=== PATIENT | male | born 1945 | race Caucasian/White ===

== ENCOUNTER 2024-05-22 17:45 | Inpatient (IN) ==
[2024-05-22 18:10] LABS: ABS Eosinophils 0.1 10^3/uL (0.0-0.5); ABS Lymphocytes 1.3 10^3/uL (1.0-4.8); ABS Monocytes 0.7 10^3/uL (0.0-1.1); Eosinophil % 0.7 %; Hematocrit 42.3 % (38-53); Hemoglobin 14.1 g/dL (13.2-16.3); Lymphocyte % 12.1 %; Mean Corpuscular Hemoglobin 30.7 pg (27-33); Mean Corpuscular Hgb Conc 33.4 g/dL (31-36); Mean Corpuscular Volume 91.9 fL (80-97); Platelet Count 189 10^3/uL (150-450); Red Cell Distribution Width 15.1 % (12-17); White Blood Count 11.2 10^3/uL (3.6-10.2)
[2024-05-22 18:44] LABS: Albumin 3.5 g/dL (3.5-5.7); Albumin/Globulin Ratio 1.9 (1-3); Calcium 8.9 mg/dL (8.6-10.3); Creatinine, Serum 1.78 mg/dL (0.67-1.17); Globulin 1.8 g/dL (2-4); Magnesium 2.1 mg/dL (1.9-2.7); Potassium 5.5 mmol/L (3.5-5.0); Total Protein 5.3 g/dL (6.4-8.9); eGFR CKD-EPI 38.8 (>60)
[2024-05-22 19:11] LABS: INR 1.13 (0.85-1.14)
[2024-05-22 19:11] LABS: Venous Bicarbonate HCO3 19.9 mmol/L (24-28)
[2024-05-22 19:34] LABS: High Sensitivity Troponin 1 Hr 182 pg/mL (<20)
[2024-05-22] MEDS: Iodixanol 320 (CONTRAST) 100 ML SDV IV ONE (19:59)
[2024-05-22 21:07] LABS: High Sensitivity Troponin 3 Hr 354 pg/mL (<20)
[2024-05-22] MEDS ORDERED: Morphine 2 MG/ML SYRINGE IV PRN (23:17)
[2024-05-22] MEDS ORDERED: Dextrose 50% Syringe 50 ml 25 GM/50 ML SYRINGE IV PUSH PRN (23:51)
[2024-05-23] MEDS: Insulin GLARGINE 100 un/ml 10 ml VIAL SUBCUT ONE (02:24)
[2024-05-23] MEDS: Heparin 5000 UNITS/ML 1 mL VIAL SUBCUT SCH (02:25)
[2024-05-23] MEDS: SODIUM ZIRCONIUM CYCLOSILICATE 5 GM PACKET PO SCH (02:28)
[2024-05-23] MEDS: Lactated Ringers 1000 ml BAG 1,000 ML IV ONE (02:42)
[2024-05-23 04:18] LABS: ABS Basophils 0.1 10^3/uL (0.0-0.1); ABS Lymphocytes 0.4 10^3/uL (1.0-4.8); ABS Monocytes 0.6 10^3/uL (0.0-1.1); ABS Neutrophils 11.9 10^3/uL (1.5-7.6); Hemoglobin 13.9 g/dL (13.2-16.3); Lymphocyte % 3.2 %; Mean Corpuscular Hemoglobin 30.4 pg (27-33); Mean Corpuscular Hgb Conc 33.1 g/dL (31-36); Mean Corpuscular Volume 91.9 fL (80-97); Mean Platelet Volume 9.2 fL (7.5-11.2); Platelet Count 182 10^3/uL (150-450); Red Blood Count 4.57 10^6/uL (4.06-5.63); Red Cell Distribution Width 14.8 % (12-17)
[2024-05-23 04:33] LABS: Albumin 3.5 g/dL (3.5-5.7); Albumin/Globulin Ratio 1.8 (1-3); Calcium 8.5 mg/dL (8.6-10.3); Creatinine, Serum 1.56 mg/dL (0.67-1.17); Globulin 1.9 g/dL (2-4); Magnesium 2.1 mg/dL (1.9-2.7); Phosphorus 5.1 mg/dL (2.5-5.0); Potassium 6.1 mmol/L (3.5-5.0); Total Bilirubin 1.1 mg/dL (0.2-1.0); Total Protein 5.4 g/dL (6.4-8.9); eGFR CKD-EPI 45.5 (>60)
[2024-05-23] MEDS: SODIUM ZIRCONIUM CYCLOSILICATE 10 GM PACKET PO ONE (05:42)
[2024-05-23] MEDS: cefTRIAXone 1 gm/50 mL D5W 1 GM/50 ML BAG IV SCH (06:15)
[2024-05-23] MEDS: Azithromycin 500 mg/250 ml NS 500 MG/250 ML BAG IVPB SCH (06:52)
[2024-05-23] MEDS: Sulfur Hexaflouride MICROSPHR 25 MG VIAL IV PRN (08:45)
[2024-05-23 09:47] LABS: Calcium 8.1 mg/dL (8.6-10.3); Creatinine, Serum 1.49 mg/dL (0.67-1.17); Potassium 5.4 mmol/L (3.5-5.0)
[2024-05-23] MEDS: Empagliflozin 25 MG TAB PO SCH (10:39)
[2024-05-23 17:25] LABS: Ferritin 378.2 ng/mL (24-336)
[2024-05-23] MEDS ORDERED: Dextrose 50% Syringe 50 ml 25 GM/50 ML SYRINGE IV PUSH PRN (18:26)
[2024-05-23] MEDS: Ferric Gluconate IV 250 MG in NS 0.9% 250 ml 200 ML IVPB SCH (18:27)
[2024-05-24 05:53] LABS: ABS Lymphocytes 0.7 10^3/uL (1.0-4.8); ABS Monocytes 1.1 10^3/uL (0.0-1.1); ABS Neutrophils 11.2 10^3/uL (1.5-7.6); ABS Nucleated RBC 0.01 10^3/ul; Eosinophil % 0.3 %; Hematocrit 41.9 % (38-53); Hemoglobin 13.9 g/dL (13.2-16.3); Lymphocyte % 5.3 %; Mean Corpuscular Hemoglobin 30.4 pg (27-33); Mean Corpuscular Hgb Conc 33.2 g/dL (31-36); Mean Corpuscular Volume 91.6 fL (80-97); Mean Platelet Volume 8.7 fL (7.5-11.2); Platelet Count 166 10^3/uL (150-450); Red Blood Count 4.58 10^6/uL (4.06-5.63); Red Cell Distribution Width 15.1 % (12-17)
[2024-05-24 06:35] LABS: Anion Gap 9 mmol/L (2-16); Blood Urea Nitrogen 33 mg/dL (6-24); CO2 Carbon Dioxide 24 mmol/L (22-32); Calcium 8.2 mg/dL (8.6-10.3); Chloride 103 mmol/L (101-111); Creatinine, Serum 1.46 mg/dL (0.67-1.17); Glucose 160 mg/dL (70-100); Magnesium 1.9 mg/dL (1.9-2.7); Sodium 136 mmol/L (135-145); eGFR CKD-EPI 49.2 (>60)
[2024-05-24 08:12] LABS: Potassium, Whole Blood 5.3 mmol/L (3.4-4.5)
[2024-05-24] MEDS: Magnesium Sulfate 2 gm BAG 2 GM/50 ML BAG IVPB ONE (08:35)
[2024-05-24 08:49] LABS: ALT 133 U/L (7-52); Albumin 3.2 g/dL (3.5-5.7); Albumin/Globulin Ratio 1.6 (1-3); Alkaline Phosphatase 94 U/L (35-149); Cholesterol 93 mg/dL; Creatine Kinase 127 U/L (10-223); LDL Cholesterol 41 mg/dL; Total Bilirubin 0.9 mg/dL (0.2-1.0); Total Protein 5.2 g/dL (6.4-8.9); Triglycerides 99 mg/dL
[2024-05-24 09:44] LABS: High Sens Troponin Baseline 307 pg/mL (<20)
[2024-05-24] MEDS: SODIUM ZIRCONIUM CYCLOSILICATE 10 GM PACKET PO ONE (16:52)
[2024-05-25 06:38] LABS: Hematocrit 41.4 % (38-53); Hemoglobin 13.8 g/dL (13.2-16.3); Mean Corpuscular Hemoglobin 30.5 pg (27-33); Mean Corpuscular Hgb Conc 33.2 g/dL (31-36); Mean Corpuscular Volume 91.7 fL (80-97); Mean Platelet Volume 8.7 fL (7.5-11.2); Platelet Count 166 10^3/uL (150-450); Red Blood Count 4.52 10^6/uL (4.06-5.63); Red Cell Distribution Width 15.2 % (12-17); White Blood Count 10.5 10^3/uL (3.6-10.2)
[2024-05-25 07:16] LABS: Calcium 8.2 mg/dL (8.6-10.3); Creatinine, Serum 1.22 mg/dL (0.67-1.17); Magnesium 2.3 mg/dL (1.9-2.7); Potassium 5.2 mmol/L (3.5-5.0); eGFR CKD-EPI 61.1 (>60)
[2024-05-25] MEDS ORDERED: fentaNYL 100 mcg/2 ml 50 MCG/ML VIAL ONE (08:27)
[2024-05-25] MEDS ORDERED: Lidocaine 1% VIAL 10 MG/ML 30 ML VIAL ONE (08:27)
[2024-05-25] MEDS ORDERED: Heparin 2 UNITS/ML 1000 mls 2,000 ML IV ONE (08:27)
[2024-05-25] MEDS ORDERED: niCARdipine 0.1MG/ML IVPREMIX 20 MG/200 ML BAG IV ONE (08:27)
[2024-05-25] MEDS ORDERED: Midazolam 5 mg/5 ml VIAL 1 mg/ml 5 ml VIAL (5 mg) ONE (08:27)
[2024-05-25] MEDS ORDERED: Iohexol 350 (CONTRAST) 200 ML MDV IV ONE (08:27)
[2024-05-25] MEDS ORDERED: Heparin 1,000 UNIT/ML 10 ml (10,000 UNITS) CATHLAB/DIALYSIS ONE (08:27)
[2024-05-25] MEDS ORDERED: nitroGLYCERIN DRIP 25,000 MCG/250 ML BTL ONE (08:28)
[2024-05-25 08:52] LABS: Albumin 3.2 g/dL (3.5-5.7); Albumin/Globulin Ratio 1.7 (1-3); Direct Bilirubin 0.3 mg/dL (0.03-0.18); Globulin 1.9 g/dL (2-4); Total Bilirubin 1.3 mg/dL (0.2-1.0); Total Protein 5.1 g/dL (6.4-8.9)
[2024-05-25] MEDS ORDERED: Heparin 2 UNITS/ML 1000 mls 1,000 ML IV ONE (09:11)
[2024-05-26 06:30] LABS: ABS Eosinophils 0.1 10^3/uL (0.0-0.5); ABS Lymphocytes 0.6 10^3/uL (1.0-4.8); ABS Monocytes 0.8 10^3/uL (0.0-1.1); ABS Neutrophils 7.4 10^3/uL (1.5-7.6); ABS Nucleated RBC 0.01 10^3/ul; Eosinophil % 1.7 %; Hematocrit 40.9 % (38-53); Hemoglobin 13.8 g/dL (13.2-16.3); Lymphocyte % 7.2 %; Mean Corpuscular Hemoglobin 30.7 pg (27-33); Mean Corpuscular Hgb Conc 33.7 g/dL (31-36); Mean Corpuscular Volume 90.9 fL (80-97); Nucleated Red Blood Cells % 0.1 %/100WBC (0.0-0.8); Platelet Count 158 10^3/uL (150-450); Red Cell Distribution Width 15.2 % (12-17)
[2024-05-26 06:56] LABS: Albumin 3.1 g/dL (3.5-5.7); Albumin/Globulin Ratio 1.6 (1-3); Calcium 8.5 mg/dL (8.6-10.3); Creatinine, Serum 1.5 mg/dL (0.67-1.17); Direct Bilirubin 0.4 mg/dL (0.03-0.18); Indirect Bilirubin 0.9 mg/dL (0.3-1.0); Magnesium 2.3 mg/dL (1.9-2.7); Potassium 4.8 mmol/L (3.5-5.0); Total Bilirubin 1.3 mg/dL (0.2-1.0); Total Protein 5.1 g/dL (6.4-8.9); eGFR CKD-EPI 47.7 (>60)
[2024-05-26] MEDS ORDERED: fentaNYL 100 mcg/2 ml 50 MCG/ML VIAL ONE (11:21)
[2024-05-26] MEDS ORDERED: Midazolam 5 mg/5 ml VIAL 1 mg/ml 5 ml VIAL (5 mg) ONE (11:21)
[2024-05-26] MEDS ORDERED: Lidocaine 1% VIAL 10 MG/ML 30 ML VIAL ONE (11:22)
[2024-05-26] MEDS ORDERED: Iohexol 350 (CONTRAST) 200 ML MDV IV ONE (11:22)
[2024-05-26] MEDS ORDERED: nitroGLYCERIN DRIP 25,000 MCG/250 ML BTL ONE (11:22)
[2024-05-26] MEDS ORDERED: Heparin 2 UNITS/ML 1000 mls 3,000 ML IV ONE (11:22)
[2024-05-26] MEDS ORDERED: Heparin 1,000 UNIT/ML 10 ml (10,000 UNITS) CATHLAB/DIALYSIS ONE (11:22)
[2024-05-26] MEDS ORDERED: niCARdipine 0.1MG/ML IVPREMIX 20 MG/200 ML BAG IV ONE (11:23)
[2024-05-26 12:14] LABS: TSH Ultra Thyroid Stim Horm 3.57 mcIU/mL (0.34-5.60)
[2024-05-26 12:16] LABS: Free T3 2.23 pg/mL (2.5-3.9); Free T4 1.19 ng/dL (0.61-1.12)
[2024-05-26] MEDS: NS 0.9% 1000 ml BAG 1,000 ML IV SCH (14:21)
[2024-05-27 05:39] LABS: ABS Eosinophils 0.2 10^3/uL (0.0-0.5); ABS Lymphocytes 0.7 10^3/uL (1.0-4.8); ABS Neutrophils 6.3 10^3/uL (1.5-7.6); Eosinophil % 2.9 %; Hematocrit 36.8 % (38-53); Hemoglobin 12.4 g/dL (13.2-16.3); Lymphocyte % 8.9 %; Mean Corpuscular Hemoglobin 30.6 pg (27-33); Mean Corpuscular Hgb Conc 33.7 g/dL (31-36); Mean Corpuscular Volume 90.7 fL (80-97); Mean Platelet Volume 8.7 fL (7.5-11.2); Platelet Count 155 10^3/uL (150-450); Red Blood Count 4.05 10^6/uL (4.06-5.63); Red Cell Distribution Width 15.1 % (12-17); White Blood Count 8.3 10^3/uL (3.6-10.2)
[2024-05-27 06:10] LABS: Albumin 2.7 g/dL (3.5-5.7); Albumin/Globulin Ratio 1.6 (1-3); Calcium 7.7 mg/dL (8.6-10.3); Creatinine, Serum 1.45 mg/dL (0.67-1.17); Globulin 1.7 g/dL (2-4); Magnesium 2.2 mg/dL (1.9-2.7); Potassium 4.8 mmol/L (3.5-5.0); Total Bilirubin 0.9 mg/dL (0.2-1.0); Total Protein 4.4 g/dL (6.4-8.9); eGFR CKD-EPI 49.6 (>60)
[2024-05-27] MEDS ORDERED: INSULIN ASPART SUBCUT SCH (17:18)
[2024-05-27] MEDS: Insulin GLARGINE 100 un/ml 10 ml VIAL SUBCUT SCH (20:59)
[2024-05-28 05:36] LABS: Hemoglobin 12.9 g/dL (13.2-16.3); Mean Corpuscular Hemoglobin 30.6 pg (27-33); Mean Corpuscular Hgb Conc 33.9 g/dL (31-36); Mean Corpuscular Volume 90.2 fL (80-97); Mean Platelet Volume 8.6 fL (7.5-11.2); Platelet Count 164 10^3/uL (150-450); Red Blood Count 4.21 10^6/uL (4.06-5.63); Red Cell Distribution Width 15.1 % (12-17); White Blood Count 7.3 10^3/uL (3.6-10.2)
[2024-05-28 06:33] LABS: Creatinine, Serum 1.36 mg/dL (0.67-1.17); Magnesium 2.3 mg/dL (1.9-2.7); eGFR CKD-EPI 53.6 (>60)
[2024-05-29 05:43] LABS: ABS Basophils 0.1 10^3/uL (0.0-0.1); ABS Eosinophils 0.3 10^3/uL (0.0-0.5); ABS Lymphocytes 0.9 10^3/uL (1.0-4.8); ABS Monocytes 0.9 10^3/uL (0.0-1.1); ABS Neutrophils 5.8 10^3/uL (1.5-7.6); Eosinophil % 3.3 %; Hematocrit 36.9 % (38-53); Hemoglobin 12.7 g/dL (13.2-16.3); Mean Corpuscular Hemoglobin 31.2 pg (27-33); Mean Corpuscular Hgb Conc 34.5 g/dL (31-36); Mean Corpuscular Volume 90.5 fL (80-97); Mean Platelet Volume 9.3 fL (7.5-11.2); Nucleated Red Blood Cells % 0.1 %/100WBC (0.0-0.8); Platelet Count 169 10^3/uL (150-450); Red Blood Count 4.07 10^6/uL (4.06-5.63); Red Cell Distribution Width 15.5 % (12-17); White Blood Count 7.9 10^3/uL (3.6-10.2)
[2024-05-29] MEDS: NS 0.9% 1000 ml BAG 1,000 ML IV SCH (06:01)
[2024-05-29 06:28] LABS: Chloride 103 mmol/L (101-111); Sodium 127 mmol/L (135-145)
[2024-05-29 06:29] LABS: CO2 Carbon Dioxide 28 mmol/L (22-32)
[2024-05-29 06:30] LABS: Blood Urea Nitrogen 38 mg/dL (6-24); Calcium 8.1 mg/dL (8.6-10.3); Creatinine, Serum 1.53 mg/dL (0.67-1.17); Glucose 122 mg/dL (70-100); eGFR CKD-EPI 46.5 (>60)
[2024-05-29] MEDS ORDERED: fentaNYL 100 mcg/2 ml 50 MCG/ML VIAL ONE (07:00)
[2024-05-29] MEDS ORDERED: Midazolam 2 mg/2 ml VIAL 1 mg/ml 2 ml VIAL (2 mg) ONE (07:00)
[2024-05-29] MEDS ORDERED: Lidocaine 2% PF 5 ML VIAL ONE (07:01)
[2024-05-29] MEDS ORDERED: ceFAZolin 2 GM PREMIX 2 GM/50 ML BAG ONE (07:39)
[2024-05-29] MEDS ORDERED: Naloxone 0.4 mg VIAL 0.4 mg/ml 1 ml VIAL IV PRN (07:46)
[2024-05-29] MEDS ORDERED: Ondansetron 4 mg VIAL 2 MG/ML 2 ml VIAL IV PRN (07:46)
[2024-05-29] MEDS ORDERED: fentaNYL 100 mcg/2 ml 50 MCG/ML VIAL IV PRN (07:46)
[2024-05-29] MEDS ORDERED: ceFAZolin 2 GM PREMIX 2 GM/50 ML BAG IV ONE (07:57)
[2024-05-29] MEDS ORDERED: KETAMINE HCL 10 MG/ML 20 ml VIAL (200 MG) ONE (08:00)
[2024-05-29 08:26] LABS: Magnesium 2.1 mg/dL (1.9-2.7); Potassium Redraw 4.7 mmol/L (3.5-5.0)
[2024-05-29] MEDS: ceFAZolin 2 GM PREMIX 2 GM/50 ML BAG IV ONE (08:50)
[2024-05-29] MEDS ORDERED: Lidocaine 1% VIAL 10 MG/ML 30 ML VIAL ONE (08:58)
[2024-05-29] MEDS: ceFAZolin SYR FLUSH 1 GM/10 ML for pocket flush (cardiology) FLUSH ONE (09:15)
[2024-05-29] MEDS ORDERED: ceFAZolin VIAL 1 GM in NS 0.9% 50 ML 50 ML IVPB SCH (10:00)
[2024-05-29 10:33] LABS: Calcium 7.8 mg/dL (8.6-10.3); Creatinine, Serum 1.31 mg/dL (0.67-1.17); Potassium 4.7 mmol/L (3.5-5.0); eGFR CKD-EPI 56.1 (>60)
[2024-05-29] MEDS: Acetaminophen IV 1 GM/100ML 1,000 MG/100 ML BAG IV PRN (12:02)
[2024-05-29] MEDS: ceFAZolin 1 GM in Dextrose 1 GM/50 ML BAG IVPB SCH (17:33)
[2024-05-30 06:07] LABS: ABS Eosinophils 0.2 10^3/uL (0.0-0.5); ABS Lymphocytes 0.9 10^3/uL (1.0-4.8); ABS Monocytes 0.8 10^3/uL (0.0-1.1); ABS Neutrophils 5.8 10^3/uL (1.5-7.6); ABS Nucleated RBC 0.01 10^3/ul; Eosinophil % 2.8 %; Hematocrit 38.3 % (38-53); Hemoglobin 12.9 g/dL (13.2-16.3); Lymphocyte % 11.5 %; Mean Corpuscular Hemoglobin 30.8 pg (27-33); Mean Corpuscular Hgb Conc 33.6 g/dL (31-36); Mean Corpuscular Volume 91.7 fL (80-97); Mean Platelet Volume 8.9 fL (7.5-11.2); Nucleated Red Blood Cells % 0.1 %/100WBC (0.0-0.8); Platelet Count 181 10^3/uL (150-450); Red Blood Count 4.18 10^6/uL (4.06-5.63); Red Cell Distribution Width 15.6 % (12-17); White Blood Count 7.7 10^3/uL (3.6-10.2)
[2024-05-30 06:52] LABS: Albumin 2.8 g/dL (3.5-5.7); Albumin/Globulin Ratio 1.6 (1-3); Calcium 8.2 mg/dL (8.6-10.3); Creatinine, Serum 1.44 mg/dL (0.67-1.17); Globulin 1.8 g/dL (2-4); Potassium 5.3 mmol/L (3.5-5.0); Total Bilirubin 0.6 mg/dL (0.2-1.0); Total Protein 4.6 g/dL (6.4-8.9)
[2024-05-30] MEDS: SODIUM ZIRCONIUM CYCLOSILICATE 10 GM PACKET PO ONE (09:17)
[2024-05-30] MEDS: Furosemide 40 mg/4 ml IV VIAL IV SLOW PU ONE (10:34)
[2024-05-30 16:37] LABS: Albumin 2.8 g/dL (3.5-5.7); Albumin/Globulin Ratio 1.6 (1-3); Calcium 7.8 mg/dL (8.6-10.3); Creatinine, Serum 1.58 mg/dL (0.67-1.17); Globulin 1.8 g/dL (2-4); Total Bilirubin 0.5 mg/dL (0.2-1.0); Total Protein 4.6 g/dL (6.4-8.9); eGFR CKD-EPI 44.8 (>60)
[2024-06-01 07:06] LABS: ABS Eosinophils 0.2 10^3/uL (0.0-0.5); ABS Monocytes 0.9 10^3/uL (0.0-1.1); ABS Neutrophils 6.4 10^3/uL (1.5-7.6); Eosinophil % 2.9 %; Hematocrit 40.8 % (38-53); Hemoglobin 13.8 g/dL (13.2-16.3); Lymphocyte % 11.8 %; Mean Corpuscular Hgb Conc 33.8 g/dL (31-36); Mean Corpuscular Volume 91.8 fL (80-97); Mean Platelet Volume 9.1 fL (7.5-11.2); Nucleated Red Blood Cells % 0.1 %/100WBC (0.0-0.8); Platelet Count 190 10^3/uL (150-450); Red Blood Count 4.45 10^6/uL (4.06-5.63); Red Cell Distribution Width 15.6 % (12-17); White Blood Count 8.6 10^3/uL (3.6-10.2)
[2024-06-01 07:34] LABS: Albumin/Globulin Ratio 1.6 (1-3); Calcium 8.4 mg/dL (8.6-10.3); Creatinine, Serum 1.42 mg/dL (0.67-1.17); Globulin 1.9 g/dL (2-4); Magnesium 2.2 mg/dL (1.9-2.7); Potassium 5.3 mmol/L (3.5-5.0); Total Bilirubin 0.7 mg/dL (0.2-1.0); Total Protein 4.9 g/dL (6.4-8.9); eGFR CKD-EPI 50.9 (>60)
[2024-06-01] MEDS: SODIUM ZIRCONIUM CYCLOSILICATE 5 GM PACKET PO ONE (10:31)
[2024-06-01] MEDS: Polyethylene Glycol 3350 17 GM PACKET PO PRN (21:28)
[2024-06-02 05:55] LABS: ABS Basophils 0.1 10^3/uL (0.0-0.1); ABS Eosinophils 0.2 10^3/uL (0.0-0.5); ABS Lymphocytes 1.1 10^3/uL (1.0-4.8); ABS Neutrophils 6.4 10^3/uL (1.5-7.6); ABS Nucleated RBC 0.01 10^3/ul; Eosinophil % 2.7 %; Hematocrit 40.6 % (38-53); Hemoglobin 13.7 g/dL (13.2-16.3); Lymphocyte % 12.4 %; Mean Corpuscular Hemoglobin 31.2 pg (27-33); Mean Corpuscular Hgb Conc 33.8 g/dL (31-36); Mean Corpuscular Volume 92.3 fL (80-97); Mean Platelet Volume 8.8 fL (7.5-11.2); Nucleated Red Blood Cells % 0.1 %/100WBC (0.0-0.8); Platelet Count 195 10^3/uL (150-450); Red Cell Distribution Width 15.8 % (12-17); White Blood Count 8.8 10^3/uL (3.6-10.2)
[2024-06-02 06:35] LABS: Albumin 3.1 g/dL (3.5-5.7); Albumin/Globulin Ratio 1.6 (1-3); Calcium 8.4 mg/dL (8.6-10.3); Creatinine, Serum 1.51 mg/dL (0.67-1.17); Magnesium 2.2 mg/dL (1.9-2.7); Potassium 4.9 mmol/L (3.5-5.0); Total Bilirubin 0.7 mg/dL (0.2-1.0); Total Protein 5.1 g/dL (6.4-8.9); eGFR CKD-EPI 47.3 (>60)
[2024-06-02 08:43] VITALS: BP 114/56
== END 2024-06-02 10:26 | DRG 275 ==
LOC: ED 17:45 → SUATTDRO 23:11 → EDHOLD 23:11 → ICU 23:20 → MEDTELE 05-25 14:26 → ICU 05-26 13:01 → MEDTELE 05-30 10:00
PROVIDERS: ADMIT Hospitalist; ATTEND Hospitalist

== ENCOUNTER 2024-06-02 09:45 | Inpatient (IN) ==
[2024-06-02] MEDS ORDERED: Dextrose 50% Syringe 50 ml 25 GM/50 ML SYRINGE IV PUSH PRN (10:21)
[2024-06-02] MEDS ORDERED: Polyethylene Glycol 3350 17 GM PACKET PO PRN (10:30)
[2024-06-02] MEDS: Heparin 5000 UNITS/ML 1 mL VIAL SUBCUT SCH (20:20)
[2024-06-02] MEDS: Insulin GLARGINE 100 un/ml 10 ml VIAL SUBCUT SCH (20:43)
[2024-06-03 06:42] LABS: ABS Basophils 0.1 10^3/uL (0.0-0.1); ABS Eosinophils 0.3 10^3/uL (0.0-0.5); ABS Lymphocytes 0.9 10^3/uL (1.0-4.8); ABS Monocytes 0.9 10^3/uL (0.0-1.1); ABS Neutrophils 5.9 10^3/uL (1.5-7.6); Eosinophil % 3.2 %; Hematocrit 42.1 % (38-53); Hemoglobin 14.2 g/dL (13.2-16.3); Lymphocyte % 10.8 %; Mean Corpuscular Hemoglobin 31.1 pg (27-33); Mean Corpuscular Hgb Conc 33.8 g/dL (31-36); Mean Corpuscular Volume 92.1 fL (80-97); Mean Platelet Volume 8.7 fL (7.5-11.2); Platelet Count 211 10^3/uL (150-450); Red Blood Count 4.57 10^6/uL (4.06-5.63); Red Cell Distribution Width 16.6 % (12-17); White Blood Count 8.1 10^3/uL (3.6-10.2)
[2024-06-03 07:16] LABS: Albumin 3.3 g/dL (3.5-5.7); Albumin/Globulin Ratio 1.6 (1-3); Calcium 8.7 mg/dL (8.6-10.3); Creatinine, Serum 1.46 mg/dL (0.67-1.17); Globulin 2.1 g/dL (2-4); Potassium 5.2 mmol/L (3.5-5.0); Total Bilirubin 0.8 mg/dL (0.2-1.0); Total Protein 5.4 g/dL (6.4-8.9); eGFR CKD-EPI 49.2 (>60)
[2024-06-03] MEDS: Aspirin EC 81 mg TAB.EC (enteric coated) PO SCH (08:23)
[2024-06-03] MEDS: Empagliflozin 25 MG TAB PO SCH (08:23)
[2024-06-03] MEDS: Polyethylene Glycol 3350 17 GM PACKET PO SCH (12:23)
[2024-06-03] MEDS: Sodium Polystyrene ORAL.SUSP 15 GM/60 ML BTL PO ONE (12:26)
[2024-06-03] MEDS: Insulin GLARGINE 100 un/ml 10 ml VIAL SUBCUT SCH (20:53)
[2024-06-04 06:37] LABS: Calcium 8.7 mg/dL (8.6-10.3); Creatinine, Serum 1.72 mg/dL (0.67-1.17); eGFR CKD-EPI 40.4 (>60)
[2024-06-05 08:48] LABS: ABS Eosinophils 0.3 10^3/uL (0.0-0.5); ABS Monocytes 0.7 10^3/uL (0.0-1.1); ABS Neutrophils 6.5 10^3/uL (1.5-7.6); Eosinophil % 3.1 %; Hematocrit 43.5 % (38-53); Hemoglobin 14.8 g/dL (13.2-16.3); Lymphocyte % 11.5 %; Mean Corpuscular Hemoglobin 31.3 pg (27-33); Mean Platelet Volume 8.9 fL (7.5-11.2); Platelet Count 251 10^3/uL (150-450); Red Blood Count 4.73 10^6/uL (4.06-5.63); Red Cell Distribution Width 16.7 % (12-17); White Blood Count 8.5 10^3/uL (3.6-10.2)
[2024-06-05 09:02] LABS: Albumin 3.5 g/dL (3.5-5.7); Albumin/Globulin Ratio 1.5 (1-3); Calcium 8.6 mg/dL (8.6-10.3); Creatinine, Serum 1.6 mg/dL (0.67-1.17); Globulin 2.3 g/dL (2-4); Total Bilirubin 0.8 mg/dL (0.2-1.0); Total Protein 5.8 g/dL (6.4-8.9); eGFR CKD-EPI 44.1 (>60)
[2024-06-05] MEDS: NS 0.9% 1000 ml BAG 1,000 ML IV SCH (10:49)
[2024-06-05] MEDS: Senna TAB 8.6 mg TAB PO PRN (17:19)
[2024-06-07] MEDS: Insulin GLARGINE 100 un/ml 10 ml VIAL SUBCUT SCH (21:24)
[2024-06-12 06:43] LABS: ABS Basophils 0.1 10^3/uL (0.0-0.1); ABS Eosinophils 0.3 10^3/uL (0.0-0.5); ABS Lymphocytes 0.9 10^3/uL (1.0-4.8); ABS Monocytes 0.8 10^3/uL (0.0-1.1); ABS Neutrophils 4.7 10^3/uL (1.5-7.6); ABS Nucleated RBC 0.01 10^3/ul; Hematocrit 39.6 % (38-53); Hemoglobin 13.3 g/dL (13.2-16.3); Lymphocyte % 12.8 %; Mean Corpuscular Hemoglobin 31.3 pg (27-33); Mean Corpuscular Hgb Conc 33.6 g/dL (31-36); Mean Corpuscular Volume 93.3 fL (80-97); Mean Platelet Volume 8.6 fL (7.5-11.2); Nucleated Red Blood Cells % 0.1 %/100WBC (0.0-0.8); Platelet Count 234 10^3/uL (150-450); Red Blood Count 4.24 10^6/uL (4.06-5.63); Red Cell Distribution Width 17.5 % (12-17); White Blood Count 6.8 10^3/uL (3.6-10.2)
[2024-06-12 07:05] LABS: Albumin 3.2 g/dL (3.5-5.7); Albumin/Globulin Ratio 1.5 (1-3); Calcium 8.4 mg/dL (8.6-10.3); Creatinine, Serum 1.69 mg/dL (0.67-1.17); Globulin 2.1 g/dL (2-4); Potassium 5.6 mmol/L (3.5-5.0); Total Bilirubin 0.5 mg/dL (0.2-1.0); Total Protein 5.3 g/dL (6.4-8.9); eGFR CKD-EPI 41.3 (>60)
[2024-06-13 06:32] LABS: Calcium 8.3 mg/dL (8.6-10.3); Creatinine, Serum 1.47 mg/dL (0.67-1.17); Potassium 5.4 mmol/L (3.5-5.0); eGFR CKD-EPI 48.8 (>60)
[2024-06-14] MEDS: SODIUM ZIRCONIUM CYCLOSILICATE 5 GM PACKET PO ONE (08:31)
[2024-06-14] MEDS: Nystatin TOP POWDER 15 GM BTL TOPICAL SCH (21:19)
[2024-06-15 06:54] LABS: Calcium 8.1 mg/dL (8.6-10.3); Creatinine, Serum 1.63 mg/dL (0.67-1.17); Potassium 5.1 mmol/L (3.5-5.0); eGFR CKD-EPI 43.1 (>60)
[2024-06-16 04:04] VITALS: BP 136/62
== END 2024-06-16 15:30 | disposition home or self-care (01) | DRG 309 ==
LOC: PMRU 11:02
PROVIDERS: ADMIT Physical Medicine & Rehabilitation; ATTEND Physical Medicine & Rehabilitation